=== PATIENT | female | born 2000 ===

== ENCOUNTER 2023-08-23 12:59 | Emergency (ER) | payer OTHER ==
[~2023-08-23] VITALS: Ht 167.6 cm; Wt 52.2 kg
[~2023-08-23 12:59] MED LIST: LEVO-T25 MCG PO
[2023-08-23 13:10] VITALS: BP 110/78
== END 2023-08-23 13:55 | disposition home or self-care (01) ==
LOC: ER 12:59
DX: S60.221A Contusion of right hand, initial encounter (principal); W22.8XXA Striking against or struck by other objects, initial encounter; F17.200 Nicotine dependence, unspecified, uncomplicated
CPT/HCPCS: 73130; 99283-25